=== PATIENT | male | born 1990 | race African-American/Black ===

== ENCOUNTER 2018-09-20 20:15 | Emergency (ER) | payer OTHER ==
--- NOTE | 2018-09-20 22:33 | ER Document Report ---
ED General - General Chief Complaint: STD Exposure Stated Complaint: POSSIBLE STD EXPOSURE Time Seen by Provider: 09/20/18 22:19 TRAVEL OUTSIDE OF THE [place] 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 He states he has had 3 days of mild sore throat, some equivocal body aches, nausea and mild bifrontal headache. No fever. No trauma. He states he had unprotected sex with a female approximately 2 months ago and is now concerned about HIV because he looks himself up. No night sweats, no fevers, no history of prior STI. No penile drainage or discharge. No lesions. No other modifying factors, no other associated symptoms, no other provocative or palliative factors. Past Medical History - Social History Smoking Status: Unknown if Ever Smoked Family History: Reviewed & Not Pertinent - Medical History Medical History: Negative Review of Systems - Review of Systems Notes: Review of systems as in the history of present illness, otherwise negative x 10 systems. Physical Exam - Vital signs Vitals: Temp Pulse Resp BP Pulse Ox 98.7 F 66 20 151/77 H 96 09/20/18 20:34 09/20/18 20:34 09/20/18 20:34 09/20/18 20:34 09/20/18 20:34 - Notes Notes: General: Well developed . HEENT: Normocephalic, atraumatic. Pupils equal round reactive to light. No JVD. Mild pharyngeal injection, no tonsillar purulence. No anterior cervical adenopathy Chest: No trauma. Respiratory: Good air exchange, normal excursion. Cardiac: Regular rhythm. No murmurs or gallops. Abdomen: Soft, benign. Nondistended. Nontender. Back: No asymmetry or gross abnormality. Motor: Grossly normal power and tone. Neurologic: Alert, nonfocal. Cranial nerves II-12 are intact. Sensation intact. Vascular: Well perfused. Normal peripheral pulses. Skin: No petechiae or purpura. Course - Re-evaluation Re-evalutation: 09/20/18 22:31 Well-appearing 28-year-old male with likely viral pharyngitis. Low Centor score, no indication for testing or treatment. With regard to the patient's concern over HIV, I think this is unlikely. However, I have counseled him that he must seek follow-up with his primary care doctor or [facility] for HIV and additional STI testing. I am on the provide HIV testing in the emergency department. - Vital Signs Vital signs: Temp Pulse Resp BP Pulse Ox 98.7 F 66 20 151/77 H 96 09/20/18 20:34 09/20/18 20:34 09/20/18 20:34 09/20/18 20:34 09/20/18 20:34 Discharge - Discharge Clinical Impression: Pharyngitis Qualifiers: Pharyngitis/tonsillitis etiology: unspecified etiology Qualified Code(s): J02.9 - Acute pharyngitis, unspecified Condition: Stable Disposition: HOME, SELF-CARE Instructions: Sore Throat ([facility]) Additional Instructions: Follow-up with your primary care provider this week
[2018-09-20 22:53] VITALS: BP 146/72
== END 2018-09-20 22:43 | disposition home or self-care (01) ==
LOC: ER 20:15
DX: Z20.2 Contact with and (suspected) exposure to infections with a predominantly sexual mode of transmission (principal)
CPT/HCPCS: 99282